=== PATIENT | male | born 1980 | race Two or more races ===

== ENCOUNTER 2018-05-26 17:49 | Emergency (ER) | payer OTHER ==
[~2018-05-26] VITALS: Ht 175.3 cm; Wt 72.6 kg
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
[2018-05-26 17:58] VITALS: BP 115/67
--- NOTE | 2018-05-26 18:20 | NUR ---
ED Nurse Note: Pt's belongings placed in locker #3.
--- NOTE | 2018-05-26 18:29 | NUR ---
ED Nurse Note: [place] and juice provided for pt.
[2018-05-26 18:37] LABS: ANION GAP 8 mmol/L (5-15); BLOOD UREA NITROGEN 12 mg/dL (7-18); CALCIUM 9.1 MG/DL (8.5-10.1); CARBON DIOXIDE 29 MMOL/L (21-32); CHLORIDE 103 MMOL/L (98-107); CREATININE 0.8 MG/DL (0.55-1.30); POTASSIUM 4.3 MMOL/L (3.5-5.1); SODIUM 140 MMOL/L (136-145)
[2018-05-26 18:39] LABS: ALANINE AMINOTRANSFERASE 32 U/L (12-78); ALBUMIN 4.1 G/DL (3.4-5.0); ALBUMIN/GLOBULIN RATIO 1.1 (1.0-2.7); ALKALINE PHOSPHATASE 95 U/L (46-116); ASPARTATE AMINO TRANSFERASE 32 U/L (15-37); BILIRUBIN,TOTAL 0.4 MG/DL (0.2-1.0)
[2018-05-26 18:43] LABS: BASOPHILS % (AUTO) 1.8 % (0.0-2.0); HEMATOCRIT 43.4 % (42.0-52.0); HEMOGLOBIN 14.2 G/DL (14.2-18.0); LYMPHOCYTES % (AUTO) 29.7 % (20.0-45.0); MEAN CORPUSCULAR VOLUME 88 FL (80-99); MONOCYTES % (AUTO) 8.2 % (1.0-10.0); NEUTROPHILS % (AUTO) 59.4 % (45.0-75.0); PLATELET COUNT 264 K/UL (150-450); RED BLOOD COUNT 4.92 M/UL (4.70-6.10); RED CELL DISTRIBUTION WIDTH 13.2 % (11.6-14.8); WHITE BLOOD COUNT 9.3 K/UL (4.8-10.8)
--- NOTE | 2018-05-26 18:44 | NUR ---
ED Nurse Note: Sitter at the bedside.
--- NOTE | 2018-05-26 18:49 | Emergency Room Report ---
History of Present Illness General Chief Complaint: Behavioral Complaint Source: Patient, EMS Present Illness HPI Patient presents by paramedics from a clinic that he was being seen at Patient reports that he is not taking his medications It was reported that the patient verbalized suicidal ideation also homicidal ideation At this time denies any chest pain and eyes any back or flank pain Patient appears agitated with flight of thought He reports that' I said what I said' However is not further elaborating Allergies: Coded Allergies: WATERMELON (Verified Allergy, Unknown, 05/26/18) Uncoded Allergies: COCONUT (Allergy, Unknown, 05/26/18) Patient History Past Medical History: see triage record Pertinent Family History: none Reviewed Nursing Documentation: PMH: Agreed; PSxH: Agreed Nursing Documentation-PMH History Of Psychiatric Problem: Yes Review of Systems All Other Systems: negative except mentioned in HPI Physical Exam Vital Signs Date Time Temp Pulse Resp B/P (MAP) Pulse Ox O2 Delivery O2 Flow Rate FiO2 05/26/18 17:42 98.1 70 18 116/68 100 Room Air 05/26/18 17:58 98 Sp02 EP Interpretation: reviewed, normal General Appearance: well appearing, no apparent distress Head: normocephalic, atraumatic 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 ENT: hearing grossly normal, normal pharynx, TMs + canals normal, uvula midline Neck: full range of motion, supple, no meningismus, no bony tend Respiratory: lungs clear, normal breath sounds, no rhonchi, no respiratory distress, no retraction, no accessory muscle use Cardiovascular #1: normal peripheral pulses, regular rate, rhythm, no edema, no gallop, no JVD, no murmur Gastrointestinal: normal bowel sounds, non tender, soft, no mass, no organomegaly, non-distended, no guarding, no hernia, no pulsatile mass, no rebound Genitourinary: no CVA tenderness Musculoskeletal: normal inspection Neurologic: oriented x3, responsive, motor strength/tone normal, sensory intact Psychiatric: anxious Skin: normal color, no rash, warm/dry, palpation normal Lymphatic: normal inspection, no adenopathy Medical Decision Making Diagnostic Impression: Primary Impression: Behavioral disorder ER Course Given the patient's history and presentation medical clearance type performance was made Patient does show positive amphetamine Otherwise continues to rest comfortably is medically cleared and will have further psychiatric input Patient transferred to psychiatric facility for further care Labs Test 4/17/19 18:12 White Blood Count 9.3 K/UL (4.8-10.8) Red Blood Count 4.92 M/UL (4.70-6.10) Hemoglobin 14.2 G/DL (14.2-18.0) Hematocrit 43.4 % (42.0-52.0) Mean Corpuscular Volume 88 FL (80-99) Mean Corpuscular Hemoglobin 28.8 PG (27.0-31.0) Mean Corpuscular Hemoglobin Concent 32.6 G/DL (32.0-36.0) Red Cell Distribution Width 13.2 % (11.6-14.8) Platelet Count 264 K/UL (150-450) Mean Platelet Volume 5.7 FL (6.5-10.1) Neutrophils (%) (Auto) 59.4 % (45.0-75.0) Lymphocytes (%) (Auto) 29.7 % (20.0-45.0) Monocytes (%) (Auto) 8.2 % (1.0-10.0) Eosinophils (%) (Auto) 1.0 % (0.0-3.0) Basophils (%) (Auto) 1.8 % (0.0-2.0) Sodium Level 140 MMOL/L (136-145) Potassium Level 4.3 MMOL/L (3.5-5.1) Chloride Level 103 MMOL/L (98-107) Carbon Dioxide Level 29 MMOL/L (21-32) Anion Gap 8 mmol/L (5-15) Blood Urea Nitrogen 12 mg/dL (7-18) Creatinine 0.8 MG/DL (0.55-1.30) Estimat Glomerular Filtration Rate > 60 mL/min (>60) Glucose Level 80 MG/DL (74-106) Calcium Level 9.1 MG/DL (8.5-10.1) Total Bilirubin 0.4 MG/DL (0.2-1.0) Aspartate Amino Transf (AST/SGOT) 32 U/L (15-37) Alanine Aminotransferase (ALT/SGPT) 32 U/L (12-78) Alkaline Phosphatase 95 U/L (46-116) Total Protein 7.9 G/DL (6.4-8.2) Albumin 4.1 G/DL (3.4-5.0) Globulin 3.8 g/dL Albumin/Globulin Ratio 1.1 (1.0-2.7) Salicylates Level 3.2 ug/mL (2.8-20) Urine Opiates Screen Negative (NEGATIVE) Acetaminophen Level < 2 MCG/ML (10-30) Urine Barbiturates Screen Negative (NEGATIVE) Phencyclidine (PCP) Screen Negative (NEGATIVE) Urine Amphetamines Screen Positive (NEGATIVE) Urine Benzodiazepines Screen Negative (NEGATIVE) Urine Cocaine Screen Negative (NEGATIVE) Urine Marijuana (THC) Screen Positive (NEGATIVE) Serum Alcohol < 3 mg/dL Last Vital Signs Date Time Temp Pulse Resp B/P (MAP) Pulse Ox O2 Delivery O2 Flow Rate FiO2 05/26/18 17:58 98.2 78 22 115/67 100 Room Air 98 Status: improved Disposition: XFER TO PSYCH HOSP/UNIT Condition: Improved Govind Venegas DO May 26, 2018 18:49
[2018-05-26 19:00] VITALS: BP 114/70
--- NOTE | 2018-05-26 19:03 | NUR ---
HAND-OFF: Report given to JASON Hitchcock.
--- NOTE | 2018-05-26 19:54 | NUR ---
ED Nurse Note: REASSESSED PT PYSCHOSOCIAL. PT DENIES PLAN TO HURT HIMSELF AT THE MOMENT. PT WENT BACK TO SLEEP.
--- NOTE | 2018-05-26 21:40 | NUR ---
ED Nurse Note: pt was offered a sandwich and juice. pt is cooperative and calm.
[2018-05-26 21:48] VITALS: BP 116/68
[2018-05-26 23:35] VITALS: BP 112/66
[2018-05-27 01:54] VITALS: BP 121/69
--- NOTE | 2018-05-27 02:25 | NUR ---
ED Nurse Note: telephone report given JASON Cortez from [facility]
[2018-05-27 02:46] VITALS: BP 121/69
--- NOTE | 2018-05-27 02:47 | NUR ---
ED Nurse Note: pt left with [facility] personnel, pt is aox4, on room air, walkie talkie, skin intact, no signs of distress pt denies pain. pt was given food and drinks, pt belonings given to [facility]
== END 2018-05-27 02:47 ==
LOC: EDBD 17:49 → EMR 20:11
DX: F91.9 Conduct disorder, unspecified (principal); Z91.018 Allergy to other foods
CPT/HCPCS: 36415; 80053; 80307; 80329; 85025; 99284